=== PATIENT | female | born 1960 | race Caucasian/White ===

== ENCOUNTER 2017-06-03 14:34 | Outpatient (CLI) | payer BC ==
--- NOTE | 2017-06-03 18:08 | ULT ---
FOCUSED ULTRASOUND OF THE NECK: 06/03/17 HISTORY: Probable abnormalities within the left aspect of the neck, evaluate for lymphadenopathy. TECHNIQUE: Focused ultrasound of the left aspect of the neck in the area of probable concern obtained. FINDINGS: Provided imaging demonstrates numerous subcentimeter normal appearing lymph nodes, measuring in the 3 to 5 mm range in short axis dimension. If this is inconsistent with the clinical exam/physical exa mination, further assessment via CT of the neck is advised. IMPRESSION: Focused ultrasound demonstrates multiple normal appearing nodes. However, if clinical suspicion evelio ants or these sonographic findings do not correlate with the clinical exam, A CT of the neck with IV contrast would be the study of choice to fully evaluate probable abnormality within the left neck. POS: [facility]
== END 2017-06-03 14:35 | disposition home or self-care (01) ==
LOC: ULT 14:34
PROVIDERS: ATTEND Internal Medicine
DX: R59.0 Localized enlarged lymph nodes (principal)
CPT/HCPCS: 76536

== ENCOUNTER 2017-06-24 10:17 | Outpatient (CLI) | payer BC ==
[2017-06-24 12:03] LABS: Anion Gap 14 mmol/L (10-20); BUN (Urea Nitrogen) 16 mg/dL (9.8-20.1); Calc. Creatinine Clearance 0 mL/min (70-130); Carbon Dioxide 29 mmol/L (22-29); Chloride 103 mmol/L (98-107); Estimated GFR-MDRD 81
[2017-06-24 12:19] LABS: Band 2 % (5-11); Hematocrit 45.3 % (36.0-47.0); Mean Platelet Volume 9.4 fL (7.4-10.4); Neutrophil 46 % (42-75); Reactive Lymphocytes 1 % (0-10); Red Blood Cell (RBC) Count 4.86 mill/uL (4.20-5.40); White Blood Cell (WBC) Count 4.4 thou/uL (4.8-10.8)
== END 2017-06-24 10:18 | disposition home or self-care (01) ==
LOC: LABBT 10:17
PROVIDERS: ATTEND Surgery
DX: Z01.812 Encounter for preprocedural laboratory examination (principal); R92.8 Other abnormal and inconclusive findings on diagnostic imaging of breast
CPT/HCPCS: 80048; 85025

== ENCOUNTER 2017-06-30 07:02 | Day surgery (SDC) | payer BC ==
[2017-06-24 10:54] VITALS: BMI 18.0
[2017-06-30] MEDS ORDERED: Bupivacaine/Epinephrine 0.25% 30 ML VIAL ONE (08:47)
[2017-06-30] MEDS ORDERED: CEFAZOLIN/Water 2 GM/20 ML SYRINGE ONE (08:59)
[2017-06-30] MEDS ORDERED: Midazolam HCl 2 mg/2 ml Vial ONE (09:06)
[2017-06-30] MEDS ORDERED: Fentanyl 100 MCG/2 ML VIAL ONE ×2 (09:06)
[2017-06-30] MEDS ORDERED: CEFAZOLIN 1 GM VIAL ONE (13:31)
[2017-06-30] MEDS ORDERED: Propofol 200 MG/20 ML VIAL ONE (13:31)
[2017-06-30] MEDS ORDERED: Lidocaine 1% PF 5 ML VIAL ONE (13:31)
[2017-06-30] MEDS ORDERED: Ondansetron HCl/PF 4 MG/2 ML Vial ONE (13:31)
[2017-06-30] MEDS ORDERED: Sterile Water 10 ML VIAL ONE (13:31)
--- NOTE | 2017-06-30 13:43 | MMO ---
RIGHT BREAST NEEDLE LOCALIZATION FOR SURGICAL EXCISION OF CALCIFICATIONS: Date: 06/30/17 HISTORY: Right breast calcifications. COMPARISON: 05/07/17. FINDINGS: Technically successful right breast needle localization. [place] needle and wire are within the calcifi cations. TECHNIQUE: Consent obtained to perform a right breast needle localization for surgical excision of calcification s. Right breast was compressed in the lateral medial orientation. Calcifications were identified. Ski n was prepped and draped in the sterile fashion. 1% lidocaine, buffered with sodium bicarbonate, was used for local anesthesia. A 5 cm [place] needle was advanced into the right breast. Needle position wa s confirmed. Breast was then compressed in the CC projection. Needle was advanced. Wire was deployed. Post deployment images were obtained. Wire and needle were secured to the patient. Films were marked . IMPRESSION: Technically successful needle localization. POS: [facility]
--- NOTE | 2017-06-30 13:45 | MMO ---
SURGICAL SPECIMEN RADIOGRAPH: Date: 06/30/17 HISTORY: Right breast calcifications. Needle localization. FINDINGS: Single specimen radiograph demonstrates the [place] wire. Calcifications were present. Findings were co nveyed to the OR by Daya, the public relations officer, on 06/30/17 at 0958 hours. IMPRESSION: Specimen radiograph as above. CODE CR. POS: [facility]
--- NOTE | 2017-06-30 16:07 | PDOC.OP ---
Operative Note - Operative Note Operative Note: PROCEDURE: Right breast needle localized excisional biopsy DATE OF PROCEDURE: 06/30/2017 SURGEON: Tiago Izaguirre M.D. PREOPERATIVE DIAGNOSES: Mammographic calcifications not amenable to stereotactic biopsy POSTOPERATIVE DIAGNOSIS: Mammographic calcification not amenable to stereotactic biopsy HISTORY: Patient is a 56-year-old woman with increasing calcifications in the deep breast tissue of the right superior breast. She has bilateral implants and due to the location of the calcifications these are not amenable to stereotactic biopsy. Needle localized excisional biopsy was recommended for diagnostic purposes. PROCEDURE IN DETAIL: After informed consent was obtained and appropriate preoperative antibiotics were administered the patient was taken to the operating which is placed in supine position and general endotracheal anesthesia by laryngeal mask airway was administered. She was prepped and draped in standard sterile fashion and an incision made between the exit site of the needle and the end of the needle. Dissection was carried down to the needle which was grasped at the 2 cm samantha. The needle localization films had been previously reviewed with radiologist and the calcifications in question were within the loop of the wire just beyond the tip of the needle. Taking care to maintain the position of the wire, the needle was withdrawn and the wire cut and brought out through the incision. The breast tissue around the distal portion of the wire was grasped with an Allis clamp and dissected free around the wire using sharp dissection. All the breast tissue between the subcutaneous fat and the pectoralis fascia was removed around the wire and the specimen removed and oriented for pathology with a long lateral, short superior, and looped superficial suture. Part of the specimen had partially laterally so these edges were drawn together with the looped superficial suture. Part of the pectoralis fascia posteriorly was removed since this was in close approximation to the wire. The specimen was sent for specimen mammography which confirmed presence of the calcifications within the specimen. The wound was irrigated and hemostasis obtained using Bovie electrocautery. No abnormal appearing or feeling tissue was noted within the biopsy cavity. Additional local anesthesia was infused circumferentially for postoperative pain control. The subcutaneous tissues were reapproximated with a running 3-0 Monocryl suture and the skin closed with a running 4-0 subcuticular Monocryl suture. Dermabond dressings were placed and the patient was extubated and taken to the recovery room in good condition. Estimated blood loss was minimal. There were no complications. SPECIMEN: Right breast needle localized excisional biopsy.
== END 2017-06-30 12:14 | disposition home or self-care (01) ==
LOC: SDC 07:02
PROVIDERS: ATTEND Surgery
PROC: 0HBT3ZX Excision of Right Breast, Percutaneous Approach, Diagnostic (ICD-10-PCS; principal; 2017-06-30)
DX: N60.31 Fibrosclerosis of right breast (principal); Z79.890 Hormone replacement therapy; Z79.899 Other long term (current) drug therapy; Z98.82 Breast implant status; Z90.710 Acquired absence of both cervix and uterus; Z90.89 Acquired absence of other organs; Z90.722 Acquired absence of ovaries, bilateral; Z98.890 Other specified postprocedural states; Z92.3 Personal history of irradiation
CPT/HCPCS: 19281; 76098; 88307; A4216; J0690; J2001; J2250; J2405; J2704; J3010

== ENCOUNTER 2018-09-04 10:06 | Outpatient (CLI) | payer BC ==
--- NOTE | 2018-09-04 13:26 | BD ---
BONE DENSITOMETRY USING DEXA: Date: 09/04/18 HISTORY: Postmenopausal screening for osteoporosis. FINDINGS: Lumbar Spine: BMD (g/cm2) L1 0.799 T-Score: -1.7 Z-Score: -0.7 L2 0.839 T-Score: -1.7 Z-Score: -0.5 L3 0.831 T-Score: -2.3 Z-Score: -1.0 L4 0.919 T-Score: -1.3 Z-Score: 0.0 L1-L4 0.850 T-Score: -1.8 Z-Score: -0.6 Femoral Neck: 0.634 T-Score: -1.9 Z-Score: -0.8 Total Femur: 0.944 T-Score: 0.0 Z-Score: 0.8 The 10 year fracture risk for a major osteoporotic fracture is 12% and for a hip fracture is 1.7%. IMPRESSION: Osteopenia. POS: [facility]
== END 2018-09-04 10:07 | disposition home or self-care (01) ==
LOC: BICMAMMO 10:06
PROVIDERS: ATTEND Internal Medicine
DX: Z12.31 Encounter for screening mammogram for malignant neoplasm of breast (principal); Z13.820 Encounter for screening for osteoporosis; Z78.0 Asymptomatic menopausal state; M85.89 Other specified disorders of bone density and structure, multiple sites
CPT/HCPCS: 77063; 77067; 77080

== ENCOUNTER 2019-02-11 10:54 | Outpatient (CLI) | payer BC ==
--- NOTE | 2019-02-11 12:59 | RAD ---
RIGHT HAND THREE VIEWS: HISTORY: Hand pain. FINDINGS: Carpals appear normally aligned and intact. The metacarpals and phalanges are unremarkable. The MCP and IP joints are unremarkable. IMPRESSION: No acute finding. POS: [facility]
--- NOTE | 2019-02-11 14:15 | RAD ---
LEFT HAND THREE VIEWS: HISTORY: Hand pain. FINDINGS: The carpals are normally aligned. Mild degenerative changes at the first carpometacarpal joint. Sli ght deformity of the distal 2nd metacarpal may represent old injury. MCP joints show mild narrowing; however, no erosive change. IP joints are unremarkable with no significant degenerative change. IMPRESSION: No evidence of erosive change or inflammatory arthropathy. POS: [facility]
--- NOTE | 2019-02-11 14:17 | RAD ---
CERVICAL SPINE FOUR VIEWS: HISTORY: Neck pain. FINDINGS: The cervical vertebrae maintain normal height. There is mild loss of disk space at C5-C6. There is mild posterolisthesis at C5-C6, measuring in the 2 mm range. Alignment is otherwise maintained. Anna y mild facet hypertrophy. IMPRESSION: Mild loss of disk space and posterior spondylosis with slight posterolisthesis at C5-C6 noted POS: [facility]
== END 2019-02-11 10:55 | disposition home or self-care (01) ==
LOC: BICRAD 10:54
PROVIDERS: ATTEND Internal Medicine
DX: M54.2 Cervicalgia (principal); M25.542 Pain in joints of left hand; M25.541 Pain in joints of right hand; M43.12 Spondylolisthesis, cervical region
CPT/HCPCS: 36415; 72040; 83520; 86038; 86140; 86200; 86225

== ENCOUNTER 2019-09-06 14:44 | Outpatient (CLI) | payer BC ==
--- NOTE | 2019-09-06 16:19 | MMO ---
Bilateral MAMMO Bilat Screen [facility]KIT. CLINICAL HISTORY: Patient is 59 years old and is seen for screening. The patient has no family history of breast cancer. The patient has no personal history of cancer. The patient has a history of right Excisional Biopsy in 2018 - benign, right Excisional Biopsy in 2014 - benign, bilateral Implants in June, - EXPLANTATION AND REPLACED SALINE IMPLANTS WITH MARIANO and bilateral Implants in 1998. VIEWS: The views performed were: bilateral craniocaudal; bilateral craniocaudal with tomosynthesis; bilateral mediolateral oblique; bilateral mediolateral oblique with tomosynthesis; and bilateral Implant displaced with tomosynthesis. FILMS COMPARED: The present examination has been compared to prior imaging studies performed at [facility] on 09/04/2018, and at [facility] on 01/31/2016, 05/07/2017 and 05/26/2017. This study has been interpreted with the assistance of computer-aided detection. MAMMOGRAM FINDINGS: The breasts are extremely dense, which may lower the sensitivity of mammography. Benign calcifications are noted bilaterally. Bilateral implants are stable. There are no suspicious masses, suspicious calcifications, or new areas of architectural distortion. IMPRESSION: THERE IS NO MAMMOGRAPHIC EVIDENCE OF MALIGNANCY. A ROUTINE FOLLOW-UP MAMMOGRAM IN 1 YEAR IS RECOMMENDED. THE RESULTS OF THIS EXAM WERE SENT TO THE PATIENT. ACR BI-RADS Category 2 - Benign finding MAMMOGRAPHY NOTE: 1. A negative mammogram report should not delay a biopsy if a dominant of clinically suspicious mass is present. 2. Approximately 10% to 15% of breast cancers are not detected by mammography. 3. Adenosis and dense breasts may obscure an underlying neoplasm. Reported by: MARIA MCKINLEY MD Electonically Signed: [id number]
== END 2019-09-06 14:45 | disposition home or self-care (01) ==
LOC: BICMAMMO 14:44
PROVIDERS: ATTEND Internal Medicine
DX: Z12.31 Encounter for screening mammogram for malignant neoplasm of breast (principal); Z91.89 Other specified personal risk factors, not elsewhere classified; Z98.82 Breast implant status
CPT/HCPCS: 77063; 77067

== ENCOUNTER 2020-09-27 10:12 | Outpatient (CLI) | payer BC ==
--- NOTE | 2020-09-27 13:54 | MMO ---
Bilateral MAMMO Bilat Screen [facility]DI[facility]KIT. CLINICAL HISTORY: Patient is 60 years old and is seen for screening. The patient has no family history of breast cancer. The patient has no personal history of cancer. The patient has a history of right Excisional Biopsy in 2018 - benign, right Excisional Biopsy in 2014 - benign, bilateral Implants in June, - EXPLANTATION AND REPLACED SALINE IMPLANTS WITH MARIANO and bilateral Implants in 1998. VIEWS: The views performed were: bilateral craniocaudal; bilateral craniocaudal with tomosynthesis; bilateral mediolateral oblique; bilateral mediolateral oblique with tomosynthesis; and bilateral Implant displaced with tomosynthesis. FILMS COMPARED: The present examination has been compared to prior imaging studies performed at [facility] on 09/04/2018 and 09/06/2019, and at [facility] on 05/07/2017 and 05/26/2017. This study has been interpreted with the assistance of computer-aided detection. MAMMOGRAM FINDINGS: The breasts are extremely dense, which may lower the sensitivity of mammography. Benign calcifications are noted bilaterally. Bilateral implants are stable. There are no suspicious masses, suspicious calcifications, or new areas of architectural distortion. IMPRESSION: THERE IS NO MAMMOGRAPHIC EVIDENCE OF MALIGNANCY. A ROUTINE FOLLOW-UP MAMMOGRAM IN 1 YEAR IS RECOMMENDED. THE RESULTS OF THIS EXAM WERE SENT TO THE PATIENT. ACR BI-RADS Category 2 - Benign finding MAMMOGRAPHY NOTE: 1. A negative mammogram report should not delay a biopsy if a dominant of clinically suspicious mass is present. 2. Approximately 10% to 15% of breast cancers are not detected by mammography. 3. Adenosis and dense breasts may obscure an underlying neoplasm. Reported by: MARIA MCKINLEY MD Electonically Signed: [id number]
== END 2020-09-27 10:13 | disposition home or self-care (01) ==
LOC: BICMAMMO 10:12
PROVIDERS: ATTEND Internal Medicine
DX: Z12.31 Encounter for screening mammogram for malignant neoplasm of breast (principal); Z98.82 Breast implant status
CPT/HCPCS: 77063; 77067

== ENCOUNTER 2021-06-27 10:56 | Outpatient (CLI) | payer BC | END 2021-06-27 10:57 | disposition home or self-care (01) | LOC: BICCT 10:56 | PROVIDERS: ATTEND Internal Medicine | DX: R59.0 Localized enlarged lymph nodes (principal) | CPT/HCPCS: 70491 ==

== ENCOUNTER 2021-10-08 10:25 | Outpatient (CLI) | payer BC | END 2021-10-08 10:26 | disposition home or self-care (01) | LOC: BICMAMMO 10:25 | PROVIDERS: ATTEND Internal Medicine | DX: Z12.31 Encounter for screening mammogram for malignant neoplasm of breast (principal); Z13.820 Encounter for screening for osteoporosis; Z78.0 Asymptomatic menopausal state; Z98.82 Breast implant status; M85.89 Other specified disorders of bone density and structure, multiple sites | CPT/HCPCS: 77063; 77067; 77080 ==

== ENCOUNTER 2022-10-16 14:18 | Outpatient (CLI) | payer BC | END 2022-10-16 14:19 | disposition home or self-care (01) | LOC: BICMAMMO 14:18 | PROVIDERS: ATTEND Internal Medicine | DX: Z12.31 Encounter for screening mammogram for malignant neoplasm of breast (principal); Z91.89 Other specified personal risk factors, not elsewhere classified; Z98.82 Breast implant status | CPT/HCPCS: 77063; 77067 ==